=== PATIENT | male | born 2000 | race Caucasian/White ===

== ENCOUNTER 2019-12-22 16:17 | Emergency (ER) | payer OTHER ==
[2019-12-22] MEDS ORDERED: CYCLOBENZAPRINE HCL 10 MG TABLET (FP) PO ONE (16:41)
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
[2019-12-22] MEDS ORDERED: LIDOCAINE 5% TOPICAL PATCH TP ONE (16:42)
[2019-12-22 16:44] VITALS: BP 116/55; PULSE 78; TEMP 98.7; BMI 30.4
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
[2019-12-22] MEDS ORDERED: CYCLOBENZAPRINE HCL 10 MG TABLET (FP) ONE (16:48)
[2019-12-22] MEDS ORDERED: LIDOCAINE 5% TOPICAL PATCH ONE (16:48)
[2019-12-22] MEDS ORDERED: LIDOCAINE PATCH REMOVAL MC SCH (22:00)
== END 2019-12-22 17:01 | disposition home or self-care (01) ==
LOC: FER 16:17
DX: S16.1XXA Strain of muscle, fascia and tendon at neck level, initial encounter (principal); S39.012A Strain of muscle, fascia and tendon of lower back, initial encounter; V87.7XXA Person injured in collision between other specified motor vehicles (traffic), initial encounter
CPT/HCPCS: 99283-25

== ENCOUNTER 2023-09-21 15:02 | Emergency (ER) | payer OTHER ==
[2023-09-21 15:25] VITALS: BP 121/73; PULSE 89; RESP 16; TEMP 97.5; BMI 31.3
[2023-09-21] MEDS ORDERED: oxyCODONE HCL 5 MG TABLET ONE (17:29)
[2023-09-21] MEDS ORDERED: LIDOCAINE 5% TOPICAL PATCH ONE (17:29)
[2023-09-21] MEDS: LIDOCAINE 5% TOPICAL PATCH TP ONE (17:34)
[2023-09-21] MEDS: oxyCODONE HCL 5 MG TABLET PO ONE (17:34)
== END 2023-09-21 20:15 | disposition home or self-care (01) ==
LOC: JER 15:02
DX: S30.0XXA Contusion of lower back and pelvis, initial encounter (principal); S09.90XA Unspecified injury of head, initial encounter; M54.50 Low back pain, unspecified; M54.2 Cervicalgia; W20.8XXA Other cause of strike by thrown, projected or falling object, initial encounter; Y99.0 Civilian activity done for income or pay
CPT/HCPCS: 70450-TC; 72125-TC; 72128-TC; 72131-TC; 73030-TC-RT-FY; 99284-25